=== PATIENT | male | born 1935 | race American Indian/Alaskan Native ===

== ENCOUNTER 2021-02-09 13:16 | Emergency (ER) | payer MEDICARE ==
--- NOTE | 2021-02-09 13:37 | Emergency Department Report ---
ED CPR HPI - General Chief Complaint: Cardiac Arrest/CPR Stated Complaint: CARDIAC ARREST Time Seen by Provider: 02/09/21 13:33 Source: EMS Mode of arrival: Stretcher Limitations: Other - History of Present Illness Initial Comments: Chief complaint: Respiratory cardiac arrest HPI: This is an 85-year-old male with history of sepsis, chronic kidney disease, atrial fibrillation who presents from [facility] nursing facility and respiratory cardiac arrest. EMS was called for respiratory failure. Nursing staff members were performing chest compressions. According to EMS, patient had weak radial pulse. PEA then ensued. EMS treated patient with airway control with intubation. Also received epinephrine. Total time of resuscitation 15 minutes prior to arrival per EMS. MD Complaint: stopped breathing Place: NH/SNF Bystander CPR Performed: Yes Shock Advised: No Initial Findings in the Field: unresponsive, PEA ROSC in the Field: No Associated Injuries: No - Related Data Previous Rx's Medication Instructions Recorded Last Taken Type Ascorbic Acid [Vitamin C] 500 mg PO BID #60 tablet 12/26/20 Unknown Rx Cholecalciferol Vit D3 [Vitamin D3 1,000 unit PO QDAY #30 tablet 12/26/20 Unknown Rx 1,000 UNIT TAB] Famotidine [Pepcid] 20 mg PO QDAY #30 tablet 12/26/20 Unknown Rx Zinc Sulfate 220 mg PO BID #60 capsule 12/26/20 Unknown Rx cephALEXin [Keflex] 500 mg PO Q12HR #10 cap 12/26/20 Unknown Rx Potassium Chloride 10 meq PO DAILY #10 tab.er.prt 01/15/21 Unknown Rx Sennosides/Docusate [Senokot S] 1 tab PO QHS #30 tablet 01/15/21 Unknown Rx bisacodyL [Dulcolax suppos] 10 mg NM BID #20 supp.rect 01/15/21 Unknown Rx polyethylene glycoL 3350 [Miralax 17 gm PO DAILY PRN #30 powd.pack 01/15/21 Un known Rx 3350] Allergies Allergy/AdvReac Type Severity Reaction Status Date / Time No Known Allergies Allergy Unverified 12/24/20 10:53 ED Review of Systems ROS: Stated complaint: CARDIAC ARREST Other details as noted in HPI Comment: Unobtainable due to pts medical conditions ED Past Medical Hx - Past Medical History Previous Medical History?: Yes Hx Hypertension: Yes Hx CVA: Yes Hx Dementia: Yes Additional medical history: afib - Surgical History Additional Surgical History: unknown - Social History Smoking Status: Former Smoker Substance Use Type: None - Medications Home Medications: Home Medications Medication Instructions Recorded Confirmed Last Taken Type Ascorbic Acid [Vitamin C] 500 mg PO BID #60 tablet 12/26/20 Unknown Rx Cholecalciferol Vit D3 [Vitamin D3 1,000 unit PO QDAY #30 tablet 12/26/20 Unknown Rx 1,000 UNIT TAB] Famotidine [Pepcid] 20 mg PO QDAY #30 tablet 12/26/20 Unknown Rx Zinc Sulfate 220 mg PO BID #60 capsule 12/26/20 Unknown Rx cephALEXin [Keflex] 500 mg PO Q12HR #10 cap 12/26/20 Unknown Rx Potassium Chloride 10 meq PO DAILY #10 tab.er.prt 01/15/21 Unknown Rx Sennosides/Docusate [Senokot S] 1 tab PO QHS #30 tablet 01/15/21 Unknown Rx bisacodyL [Dulcolax suppos] 10 mg NM BID #20 supp.rect 01/15/21 Unknown Rx polyethylene glycoL 3350 [Miralax 17 gm PO DAILY PRN #30 powd.pack 01/15/21 Unknown Rx 3350] ED Physical Exam - General Limitations: Other General appearance: other (lifeless, pale, ) - Head Head exam: Present: atraumatic, normocephalic - Eye Pupils: Present: other (Pupils fixed dilated, dried corneas) - ENT ENT exam: Present: mucous membranes dry - Respiratory Respiratory exam: Present: other (No respiratory effort no spontaneous breathing) - Cardiovascular Cardiovascular Exam: Present: gallop, other (No palpable pulses no auscultated heart sounds) - GI/Abdominal GI/Abdominal exam: Present: soft. Absent: distended - Extremities Exam Extremities exam: Present: other (No deformities in the extremities) - Neurological Exam Neurological exam: Present: other (Lifeless no spontaneous movement) - Skin Skin exam: Present: rash, pallor ED Medical Decision Making - Medical Decision Making Respiratory cardiac arrest: Upon arrival patient rhythm PEA, patient was intubated by EMS with ETT. We continued ACLS for subsequent 9 minutes including chest compressions, epinephrine, calcium, sodium bicarbonate. Asystole was the terminal rhythm. Time of 1325. Critical care attestation.: If time is entered above; I have spent that time in minutes in the direct care of this critically ill patient, excluding procedure time. ED Disposition Clinical Impression: Cardiac arrest Disposition: DC-20 Is pt being admited?: No Does the pt Need Aspirin: No Condition: Stable Time of Disposition: 13:25
[2021-02-09] MEDS ORDERED: CALCIUM CHLORIDE 1,000 MG/10 ML SYRINGE IV ONE (22:00)
[2021-02-09] MEDS ORDERED: SODIUM BICARB 8.4% 50 MEQ/50 ML SYRINGE IV ONE (22:00)
[2021-02-09] MEDS ORDERED: EPINEPHrine 1 MG/10 ML SYRINGE ONE (22:00)
== END 2021-02-09 17:54 ==
LOC: ED 13:16
DX: I46.9 Cardiac arrest, cause unspecified (principal); I10 Essential (primary) hypertension; F03.90 Unspecified dementia, unspecified severity, without behavioral disturbance, psychotic disturbance, mood disturbance, and anxiety; I48.91 Unspecified atrial fibrillation; Z86.73 Personal history of transient ischemic attack (TIA), and cerebral infarction without residual deficits; Z87.891 Personal history of nicotine dependence; Z79.899 Other long term (current) drug therapy
CPT/HCPCS: 99285; J0171